=== PATIENT | male | born 1975 | race Caucasian/White ===

== ENCOUNTER 2020-06-04 15:52 | Emergency (ER) | payer MEDICAID ==
[2020-06-04] MEDS ORDERED: Cyclobenzaprine 10 MG Tab PO ONE (16:31)
[2020-06-04] MEDS ORDERED: Ketorolac 60 MG/2 ML SDV IM ONE (16:31)
--- NOTE | 2020-06-04 16:37 | EDM.PDOC ---
ED HPI GENERAL MEDICAL PROBLEM - General Chief Complaint: Back Pain or Injury Stated Complaint: BACK PAIN Time Seen by Provider: 06/04/20 16:10 Source of Information: Reports: Patient, Family History Limitations: Reports: No Limitations - History of Present Illness INITIAL COMMENTS - FREE TEXT/NARRATIVE: 45 yo male presents to ER with lumbar back pain. He does have a hx of lumbar back pain associated with muscle spasms. This episode began mildly 3 days ago and this morning he was lifting a heavy object and twisting and the pain intensified. Spasmatic in nature. Worse when he is standing or sitting straight. better when he is laying flat. denies radiation, loss of bowel or bladder, or saddle numbness. generally healthy Lower Back Pain Score (Numeric/FACES): 9 - Related Data Allergies Allergy/AdvReac Type Severity Reaction Status Date / Time No Known Allergies Allergy Verified 06/04/20 16:11 Home Meds: Home Meds Cyclobenzaprine [Flexeril] 10 mg PO Q6H PRN 06/04/20 [History] Past Medical History HEENT History: Reports: Cataract, Other (See Below) Other HEENT History: ringing in ears Musculoskeletal History: Reports: Back Pain, Chronic - Infectious Disease History Infectious Disease History: Reports: None - Past Surgical History Head Surgeries/Procedures: Reports: None HEENT Surgical History: Reports: None Musculoskeletal Surgical History: Reports: None Social & Family History - Tobacco Use Smoking Status *Q: Never Smoker Second Hand Smoke Exposure: No - Caffeine Use Caffeine Use: Reports: Coffee, Energy Drinks, Soda - Recreational Drug Use Recreational Drug Use: No ED ROS GENERAL - Review of Systems Review Of Systems: See Below Constitutional: Denies: Fever, Chills, Fatigue, Night Sweats Respiratory: Denies: Shortness of Breath, Wheezing Cardiovascular: Denies: Chest Pain ED EXAM,LOWER BACK PAIN/INJURY - Physical Exam Exam: See Below Exam Limited By: No Limitations General Appearance: Alert, WD/WN, No Apparent Distress Head: Atraumatic, Normocephalic Respiratory/Chest: No Respiratory Distress, Lungs Clear, Normal Breath Sounds. No: Crackles, Rhonchi, Wheezing Cardiovascular: Regular Rate, Rhythm, No Murmur GI/Abdominal: Soft, Non-Tender, No Distention Back Exam: Muscle Spasm, Other (lumbar pain bilateral to palp at belt-line) Neurological: Alert Course - Vital Signs Last Recorded V/S: Last Vital Signs Temp 36.3 C 06/04/20 16:07 Pulse 50 L 06/04/20 16:07 Resp 16 06/04/20 16:07 BP 126/77 06/04/20 16:07 Pulse Ox 97 06/04/20 16:07 - Orders/Labs/Meds Meds: Medications Discontinued Medications Generic Name Dose Route Start Last Admin Trade Name Dejah PRN Reason Stop Dose Admin Cyclobenzaprine HCl 10 mg 06/04/20 16:31 06/04/20 16:39 Flexeril PO 06/04/20 16:32 10 mg ONETIME ONE Administration Ketorolac Tromethamine 60 mg 06/04/20 16:31 06/04/20 16:39 Toradol IM 06/04/20 16:32 60 mg ONETIME ONE Administration - Re-Assessments/Exams Free Text/Narrative Re-Assessment/Exam: 06/04/20 17:15 pain and spasm improved with muscle relaxation and NSAID. Departure - Departure Time of Disposition: 17:15 Disposition: Home, Self-Care 01 Condition: Good Clinical Impression: Lumbar back pain, Muscle spasm - Discharge Information *PRESCRIPTION DRUG MONITORING PROGRAM REVIEWED*: Not Applicable *COPY OF PRESCRIPTION DRUG MONITORING REPORT IN PATIENT CHERYL: Not Applicable Instructions: Back Exercises, [id number] Referrals: Boyd Ferrara MD [Primary Care Provider] - Forms: ED Department Discharge Additional Instructions: cyclobenzaprine as needed for muscle spasms up to three times daily this medication may make you sleepy stretching alternating between ice and heat to solve the problem you will need to strengthen your core muscles through physical therapy Sepsis Event Note (ED) - Evaluation Sepsis Screening Result: No Definite Risk - Focused Exam Vital Signs: Vital Signs Temp Pulse Resp BP Pulse Ox 06/04/20 16:07 36.3 C 50 L 16 126/77 97
== END 2020-06-04 17:32 | disposition home or self-care (01) ==
LOC: JP.ED 15:52
DX: M62.830 Muscle spasm of back (principal)
CPT/HCPCS: 96372; 99283; A9270; J1885

== ENCOUNTER 2020-12-06 21:39 | Emergency (ER) | payer MEDICAID ==
[2020-12-06] MEDS ORDERED: Albuterol/Ipratropium 3.0-0.5 MG/3 ML Neb Soln NEB ONE (21:43)
--- NOTE | 2020-12-06 21:44 | EDM.PDOC ---
ED HPI GENERAL MEDICAL PROBLEM - General Chief Complaint: Respiratory Problem Stated Complaint: S.O.B,. Time Seen by Provider: 12/06/20 21:40 Source of Information: Reports: Patient History Limitations: Reports: No Limitations - History of Present Illness INITIAL COMMENTS - FREE TEXT/NARRATIVE: Patient is a 45-year-old male presenting to the ED with his for acute exacerbation of shortness of breath. 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 This resulted in acute onset of dyspnea, tachypnea, and cough. The exposure occurred at 2100 hrs. approximately 40 minutes prior to arrival to the ED. 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 - Related Data Allergies Allergy/AdvReac Type Severity Reaction Status Date / Time No Known Allergies Allergy Verified 12/06/20 21:48 Home Meds: Home Meds NK [No Known Home Meds] 12/06/20 [History] Past Medical History HEENT History: Reports: Cataract, Other (See Below) Other HEENT History: ringing in ears Musculoskeletal History: Reports: Back Pain, Chronic - Infectious Disease History Infectious Disease History: Reports: None - Past Surgical History Head Surgeries/Procedures: Reports: None HEENT Surgical History: Reports: None Musculoskeletal Surgical History: Reports: None Social & Family History - Caffeine Use Caffeine Use: Reports: Coffee, Energy Drinks, Soda ED ROS GENERAL - Review of Systems Review Of Systems: See Below Constitutional: Reports: No Symptoms HEENT: Reports: No Symptoms Respiratory: Reports: Shortness of Breath Cardiovascular: Reports: No Symptoms Endocrine: Reports: No Symptoms GI/Abdominal: Reports: No Symptoms : Reports: No Symptoms Musculoskeletal: Reports: No Symptoms Skin: Reports: No Symptoms Neurological: Reports: No Symptoms Psychiatric: Reports: Anxiety Hematologic/Lymphatic: Reports: No Symptoms Immunologic: Reports: No Symptoms ED EXAM, GENERAL - Physical Exam Exam: See Below Exam Limited By: No Limitations General Appearance: Alert, Anxious, Mild Distress Eye Exam: Bilateral Eye: EOMI, PERRL Throat/Mouth: Normal Inspection, Normal Lips, Normal Oropharynx, Normal Voice, No Airway Compromise Head: Atraumatic, Normocephalic Respiratory/Chest: No Respiratory Distress, Lungs Clear, Normal Breath Sounds, No Accessory Muscle Use. No: Crackles, Rhonchi, Wheezing Cardiovascular: Normal Peripheral Pulses, Regular Rate, Rhythm, No Murmur Peripheral Pulses: 2+: Radial (R) Neurological: Alert, Oriented, Normal Cognition, No Motor/Sensory Deficits Psychiatric: Anxious Skin Exam: Warm, Dry, Intact, Normal Color. No: Cyanosis Lymphatic: No Adenopathy #1 Interpretation EKG Date: 12/06/20 Time: 22:01 Rhythm: NSR Rate (Beats/Min): 64 [place]: Normal P-Wave: Present QRS: Normal ST-T: Normal QT: Normal Comparison: NA - No Prior EKG Course - Orders/Labs/Meds Orders: Active Orders 24 hr Category Date Time Status EKG Documentation Completion [RC] ASDIRECTED Care 12/06/20 21:43 Active RT Aerosol Therapy [RC] ASDIRECTED Care 12/06/20 21:44 Active Chest 2V [CR] Stat Exams 12/06/20 21:42 Ordered C-REACTIVE PROTEIN [CHEM] Stat Lab 12/06/20 21:42 Ordered CBC WITH AUTO DIFF [HEME] Stat Lab 12/06/20 21:42 Ordered EKG 12 Lead [EK] Routine Ther 12/06/20 21:42 Ordered Meds: Medications Discontinued Medications Generic Name Dose Route Start Last Admin Trade Name Freq PRN Reason Stop Dose Admin Albuterol/Ipratropium 3 ml 12/06/20 21:43 Duoneb 3.0-0.5 Mg/3 Ml NEB 12/06/20 21:44 ONETIME ONE - Radiology Interpretation Free Text/Narrative:: I reviewed the two-view chest on the patient. There is a small amount of perihilar bronchial edema consistent with an acute inflammatory pneumonitis. - Re-Assessments/Exams Free Text/Narrative Re-Assessment/Exam: 12/06/20 21:59 I discussed the case with poison control who recommends and perhaps a bronchodilator. They state that this is usually chlorine gas inhalation and causes mucosal irritation and the feeling like you are short of breath. The good signs as the patient has no previous history of asthma or COPD. 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 They recommended just staying out of the environment and in the clear air. Steam may also be helpful so standing next to a steamy shower may help relieve symptoms. The chemical irritation usually improves over the course of an hour or so. They recommend discharge once the patient no longer needs nebulized therapy. 12/06/20 22:19 the patient improved after the DuoNeb. My plan is to discharge him home with an albuterol inhaler. Chest x-ray and labs look good. Indications return to the ED were discussed prior to discharge. Departure - Departure Time of Disposition: 22:19 Disposition: Home, Self-Care 01 Clinical Impression: Chlorine inhalation lung injury, Acute pneumonitis due to chemical fumes - Discharge Information Instructions: Shortness of Breath, Adult, [id number], Pneumonitis Forms: ED Department Discharge Care Plan Goals: You have suffered some mild irritation to the mucous membranes and the upper airways due to an accidental inhalation of chlorine gas caused by the inadvertent mixing of the 2 chemicals (iron out gel and [place] fresh toilet bowl shafting cleaner) causing the release of chloride gas. This results in irritation and spasm of the airways. We will provide you with an albuterol inhaler that you can use over the next day to help reduce the spasm in the airways and open them up so you are able to breathe easier. Please avoid any other irritants for the next couple of days until your lungs recover. You may also benefit from steam to help soothe the mucous membranes and airway. If you have additional questions I would encourage you to contact [place] poison control at - Problem List & Annotations (1) Chlorine inhalation lung injury SNOMED Code(s): 91255882 Code(s): T59.4X1A - TOXIC EFFECT OF CHLORINE GAS, ACCIDENTAL, INIT; J70.8 - RESPIRATORY CONDITIONS DUE TO OTH EXTERNAL AGENTS Status: Acute Priority: High Current Visit: Yes (2) Acute pneumonitis due to chemical fumes SNOMED Code(s): 274240738 Code(s): J68.0 - BRONCHITIS & PNEUMONITIS D/T CHEMICALS, GAS, FUMES & VAPORS Status: Acute Priority: High Current Visit: Yes - Problem List Review Problem List Initiated/Reviewed/Updated: Yes - My Orders Last 24 Hours: My Active Orders 12/06/20 21:42 Chest 2V [CR] Stat C-REACTIVE PROTEIN [CHEM] Stat CBC WITH AUTO DIFF [HEME] Stat EKG 12 Lead [EK] Routine 12/06/20 21:43 EKG Documentation Completion [RC] ASDIRECTED 12/06/20 21:44 RT Aerosol Therapy [RC] ASDIRECTED - Assessment/Plan Last 24 Hours: My Active Orders 12/06/20 21:42 Chest 2V [CR] Stat C-REACTIVE PROTEIN [CHEM] Stat CBC WITH AUTO DIFF [HEME] Stat EKG 12 Lead [EK] Routine 12/06/20 21:43 EKG Documentation Completion [RC] ASDIRECTED 12/06/20 21:44 RT Aerosol Therapy [RC] ASDIRECTED
--- NOTE | 2020-12-07 09:20 | CR ---
CHEST: 2 view CLINICAL HISTORY:Acute dyspnea COMPARISON:None FINDINGS: The heart size, pulmonary vascularity and hilar structures are normal. No infiltrate effusion or pneumothorax is seen. There is some mild prominence to the perihilar bronchial markings IMPRESSION: Mild prominence of the perihilar bronchial markings of questioned significance. Early pneumonitis or bronchitis is not excluded
== END 2020-12-06 22:32 | disposition home or self-care (01) ==
LOC: JP.ED 21:39
DX: T59.91XA Toxic effect of unspecified gases, fumes and vapors, accidental (unintentional), initial encounter (principal); J68.0 Bronchitis and pneumonitis due to chemicals, gases, fumes and vapors
CPT/HCPCS: 36415; 71046; 71046-26; 85025; 86140; 93005; 94640; 99284; 99285-25; J7620-GY

== ENCOUNTER 2022-04-27 22:07 | Emergency (ER) | payer MEDICAID ==
[2022-04-27] MEDS ORDERED: Sodium Chloride 0.9% 10 ML Syringe FLUSH PRN (22:49)
[2022-04-27] MEDS ORDERED: Iopamidol 612 MG/ML 500 ML Multipack Bottle IV ONE (23:04)
[2022-04-27] MEDS ORDERED: Sodium Chloride 0.9% 100 ML IV SCH (23:15)
[2022-04-27 23:41] LABS: ESTIMATED GFR 105 mL/min (>60)
[2022-04-28] MEDS ORDERED: Ertapenem 1 GM in Sodium Chloride 0.9% 100 ML IV ONE (00:54)
== END 2022-04-28 01:26 ==
LOC: JP.ED 22:07
DX: K35.30 Acute appendicitis with localized peritonitis, without perforation or gangrene (principal); K40.20 Bilateral inguinal hernia, without obstruction or gangrene, not specified as recurrent; Z20.822 Contact with and (suspected) exposure to COVID-19
CPT/HCPCS: 36415; 74177; 80053; 81001; 85025; 86140; 87635; 99284; 99285; J1335; J3490; Q9967; U0002

== ENCOUNTER 2022-08-17 07:18 | Day surgery (SDC) | payer MEDICAID ==
[~2022-08-17 07:18] MED LIST: Bupivacaine 0.5% 50 ML MDV ONE; Bupivacaine 0.5%/EPINEPHrine 1:200,000 50 ML MDV ONE; Lidocaine 1% with EPINEPHrine 1:100,000 50 ML MDV ONE; Midazolam 1 MG/ML 2 ML SDV ONE; Propofol 200 MG/20 ML SDV ONE; fentaNYL 100 MCG/2 ML SDV ONE
[2022-08-17] MEDS ORDERED: Sodium Chloride 0.9% 1,000 ML IV SCH (07:45)
[2022-08-17] MEDS ORDERED: Ketorolac 30 MG/ML SDV ONE (08:27)
[2022-08-17] MEDS ORDERED: Propofol 200 MG/20 ML SDV ONE ×3 (08:27→09:28)
[2022-08-17] MEDS ORDERED: ceFAZolin 2 GM in Sodium Chloride 0.9% 50 ML IV ONE (08:30)
[2022-08-17] MEDS ORDERED: metroNIDAZOLE/Normal Saline 500 MG in Premix Bag 1 BAG IV ONE (08:30)
[2022-08-17] MEDS ORDERED: Bupivacaine 0.5% 50 ML MDV INJECT ONE ×2 (08:40)
[2022-08-17] MEDS ORDERED: Acetaminophen/HYDROcodone 325-5 MG Tab PO ONE (11:19)
== END 2022-08-17 12:45 | disposition home or self-care (01) ==
LOC: JP.SDS 07:18
PROVIDERS: ATTEND Surgery
DX: K40.20 Bilateral inguinal hernia, without obstruction or gangrene, not specified as recurrent (principal); K92.1 Melena; I95.9 Hypotension, unspecified; Z79.899 Other long term (current) drug therapy; Z88.2 Allergy status to sulfonamides
CPT/HCPCS: 49505; A9270; C1713; C1781; J0171; J0690; J1100; J1885; J2250; J2704; J2795; J3010; J3490; J7030